=== PATIENT | female | born 1955 | race Caucasian/White ===

== ENCOUNTER → 2018-12-23 07:58 | Day surgery (SDC) | payer BC ==
[~2018-12-23 07:58] MED LIST: Buffered Lidocaine 1% SYRIN* 1 ML/SYRINGE INTRADERM ONE; Dexamethasone IV* 4 MG/ML 1 ML (4 MG) ONE; Famotidine IV* 10 MG/ML 2 ML (20 mg) IV ONE; Famotidine IV* 10 MG/ML 2 ML (20 mg) ONE; Lactated Ringers 1000 ML Bag* 1,000 ML IV SCH; Lidocaine 2% PF * 5 ML VIAL ONE; Midazolam* 1 MG/ML 10 ML VIAL (10 MG) ONE; Naloxone* 0.4 MG/ML 1 ML VIAL IV PRN; Ondansetron INJ* 2 MG/ML VIAL IV PRN; Ondansetron INJ* 2 MG/ML VIAL ONE; Propofol* 10 MG/ML 20 ML BTL ONE; fentaNYL* 50 MCG/ML 2 ML VIAL (100 MCG VIAL) ONE
[2018-12-23 11:20] VITALS: BP 129/74
--- NOTE | 2018-12-24 22:49 | PRO ---
CC: Dr. Terrence Delaney * COLONOSCOPY REPORT: DATE OF PROCEDURE: 12/23/18 - [facility] PRIMARY CARE PHYSICIAN: Dr. Terrence Delaney. INDICATION FOR PROCEDURE: History of colon polyps. PROCEDURE PERFORMED: Complete colonoscopy to the terminal ileum with biopsy polypectomy. MEDICATIONS GIVEN: Please see Anesthesia record. DESCRIPTION OF PROCEDURE: After the colonoscopy procedure including the risks, benefits, and alternatives with the risks not limited to perforation, surgery, missed lesions, and/or were explained to the patient, written informed consent was obtained. IV medication was given and a rectal exam was performed. The rectal exam was unremarkable. The pediatric Olympus colonoscope was then inserted into the patient's rectum and advanced very carefully through the entirety of the colon into the cecal base. The cecal base was carefully inspected and normal in appearance. The terminal ileal valve was identified and intubated x4 to 5 cm and normal. The preparation was good. The scope was then returned to the cecum. A photograph was taken of the cecal cap. The colon was quite tortuous in nature requiring multiple loop reductions; however, with the pediatric colonoscope, intubation was relatively easy, especially with the anesthesia assistance. Over the next 7 minutes, the scope was carefully withdrawn inspecting the mucosa. In the rectum, a small polyp was removed with biopsy polypectomy in entirety. On retroflexion, the views were grossly normal. The scope was then removed from the patient. She tolerated the procedure well. She returned to the recovery room in stable condition. IMPRESSION: 1. Complete colonoscopy to the terminal ileum. 2. Biopsy polypectomy of rectal polyp. 3. Pediatric Olympus colonoscope usage. 4. Good prep. RECOMMENDATIONS: Repeat colonoscopy in 5 years' time with anesthesia assistance. [id number]/[facility] #: [id number] [facility]
== END | disposition home or self-care (01) ==
LOC: OR 07:58
PROVIDERS: ATTEND Internal Medicine Gastroenterology
DX: Z09 Encounter for follow-up examination after completed treatment for conditions other than malignant neoplasm (principal); Z86.010 Personal history of colon polyps; D12.8 Benign neoplasm of rectum; K21.9 Gastro-esophageal reflux disease without esophagitis
CPT/HCPCS: 88305; J1100; J2250; J2405; J2704; J3010